=== PATIENT | female | born 1960 | race Caucasian/White ===

== ENCOUNTER 2020-08-27 12:50 | Observation (INO) ==
[2020-08-27] MEDS ORDERED: ONDANSETRON 4 MG/2 ML VIAL IV STA (15:59)
[2020-08-27] MEDS ORDERED: SODIUM CHLORIDE 0.9% 1,000 ML IV STA (15:59)
[2020-08-27 16:12] LABS: Basophils % 0.6 % (0.0-0.8); Eosinophils % 0.2 % (0.00-10.9); Hematocrit 37.8 VOL% (35.7-47.0); Hemoglobin 13.1 GM/DL (12.0-16.0); Immature Granulocytes % 0.2 %; Immature Granulocytes Absolute 0.01 #; Lymphocytes # 2.1 10*3/uL (1.4-4.0); Lymphocytes % 43.7 % (21.3-54.2); Mean Corpuscular HGB Conc 34.7 GM/DL (32-36); Mean Corpuscular Volume 92.6 FL (87-102); Mean Platelet Volume 12.4 FL (9.6-12.0); Monocytes % 7.2 % (1.7-12.7); Neutrophils % 48.1 % (38.7-73.9); Platelet Count 183 T/CUMM (130-400); Red Blood Count 4.08 MC/CUMM (3.8-5.5); Red Cell Distribution Width 16.4 % (9.3-17.3); White Blood Count 4.7 T/CUMM (4-12)
[2020-08-27 16:20] LABS: Bilirubin,Urine Negative (Negative); Blood, Urine Negative (Negative); Glucose,Urine (UA) Negative (Negative); Ketones,Urine Negative (Negative); Nitrite,Urine Negative (Negative); Protein,Urine Negative; RBC,Urine 1 /HPF (0-4); Urine Appearance CLEAR (Clear); Urine Color Yellow (Yellow); Urine Specific Gravity 1.002 (1.001-1.035); Urine Urobilinogen < 2.0 EU/DL (0.2-1.0)
[2020-08-27 17:26] LABS: Albumin 2.9 G/DL (3.4-5.0); Bilirubin,Total 2.2 MG/DL (0.2-1.0); Calcium 8.3 MG/DL (8.5-10.1); Osmolality,Calculated 269.1 MOS/KG (273-304); Potassium 3.2 MMOL/L (3.5-5.1); Total Protein 6.4 G/DL (6.4-8.2)
[2020-08-27] MEDS ORDERED: METOCLOPRAMIDE 10 MG/2 ML VIAL IV STA (17:34)
[2020-08-27] MEDS ORDERED: MORPHINE 4 MG/1 ML VIAL IV STA (17:34)
[2020-08-27] MEDS ORDERED: POTASSIUM CHLORIDE 20 MEQ TABLET PO STA (17:35)
[2020-08-27] MEDS ORDERED: ALUM/MAG/SIMETH/LIDO VISC 1:1 30 ML BOTTLE PO STA (17:35)
[2020-08-27] MEDS ORDERED: ONDANSETRON 4 MG/2 ML VIAL IV PRN (17:50)
[2020-08-27] MEDS ORDERED: KETOROLAC 30 MG/1 ML VIAL IV PRN (23:24)
[2020-08-28] MEDS: SODIUM CHLORIDE 0.9% 1,000 ML IV SCH ×2 (00:04→04:13)
[2020-08-28 06:05] LABS: Basophils % 0.7 % (0.0-0.8); Eosinophils # 0.1 10*3/uL (0.0-0.87); Eosinophils % 2.2 % (0.00-10.9); Hematocrit 30.7 VOL% (35.7-47.0); Immature Granulocytes % 0.2 %; Immature Granulocytes Absolute 0.01 #; Lymphocytes # 2.2 10*3/uL (1.4-4.0); Lymphocytes % 54.7 % (21.3-54.2); Mean Corpuscular HGB Conc 35.2 GM/DL (32-36); Mean Corpuscular Volume 92.5 FL (87-102); Mean Platelet Volume 10.6 FL (9.6-12.0); Monocytes % 6.2 % (1.7-12.7); Red Blood Count 3.32 MC/CUMM (3.8-5.5); Red Cell Distribution Width 16.1 % (9.3-17.3); White Blood Count 4.1 T/CUMM (4-12)
[2020-08-28 06:11] LABS: Hemoglobin 10.8 GM/DL (12.0-16.0); Platelet Count 113 T/CUMM (130-400)
[2020-08-28 06:19] LABS: Albumin 2.2 G/DL (3.4-5.0); Bilirubin,Total 2.5 MG/DL (0.2-1.0); Calcium 7.8 MG/DL (8.5-10.1); Osmolality,Calculated 275.4 MOS/KG (273-304); Potassium 3.7 MMOL/L (3.5-5.1); Total Protein 5.2 G/DL (6.4-8.2)
[2020-08-28 06:26] LABS: Eosinophils 1 % (0-10); Hypochromasia 1+; Lymphocytes 52 % (20-55); Microcytosis 1+; Platelet Estimate Decreased; Segmented Neutrophils 44 % (50-85); Total Cells Counted 100
[2020-08-28 06:27] LABS: Atypical Lymphocytes Few
[2020-08-28 08:09] LABS: Hepatitis B Core IgM Quant < 0.05 Index; Hepatitis B Surface Ag Quant < 0.10 Index; Hepatitis B Surface Ag Result Non-Reactive (NonReactive); Hepatitis C Virus Ab Quant 0.05 Index; Hepatitis C Virus Ab Result Non-Reactive (NonReactive)
[2020-08-28] MEDS ORDERED: PANTOPRAZOLE 20 MG TABLET PO SCH (11:30)
[2020-08-28 12:01] VITALS: BP 121/83
== END 2020-08-28 14:39 | disposition home or self-care (01) ==
LOC: N.ED 12:50 → N.EDINP 12:50 → N.5E 19:46
PROVIDERS: ADMIT Surgery; ATTEND Surgery